=== PATIENT | female | born 2000 | race Caucasian/White ===

== ENCOUNTER 2022-05-11 19:49 | Emergency (ER) | payer OTHER, SELFPAY ==
[2022-05-11 19:56] VITALS: BP 99/71; PULSE 107; RESP 18; TEMP 36.9; O2SAT 96; BMI 25.1
[2022-05-11] MEDS: KETOROLAC 15 MG/ML inj IVP (20:33)
[2022-05-11] MEDS: METHYLPREDNISOLONE SOD SUCC 62.5 MG/ML (125) 125 MG IVP (20:33)
[2022-05-11] MEDS: 0.9 % SODIUM CHLORIDE 1000 ml 1,000 ML IV (20:33)
[2022-05-11 20:42] VITALS: PULSE 94; O2SAT 100
[2022-05-11 20:45] VITALS: PULSE 95; O2SAT 99
[2022-05-11 20:46] LABS: Basophils Absolute Auto 0.04 K/uL (0.00-0.30); Basophils Percent Auto 0.4 % (0.0-3.0); Eosinophils Absolute Auto 0.03 K/uL (0.00-0.50); Eosinophils Percent Auto 0.3 % (0.0-7.0); Hematocrit 43.6 % (33.0-51.0); Hemoglobin* 14.7 gm/dL (12.0-16.0); Immature Granulocytes Abs Auto 0.02 K/uL (0.00-0.30); Immature Granulocytes Pct Auto 0.2 %; Mean Corpuscular HGB Conc 34 gm/dL (32-36); Mean Corpuscular Hemoglobin 32 pg (26-34); Mean Corpuscular Volume 96 fL (80-100); Monocytes Percent Auto 13.6 % (0.0-11.0); Neutrophils Percent Auto 74.5 % (42.0-72.0); Platelet Count* 209 K/uL (140-440); RDW Coefficient of Variation % 11.7 % (11.5-15.5); Red Blood Count 4.54 m/uL (4.00-5.20); White Blood Count* 10.13 K/uL (4.50-11.00)
[2022-05-11 20:47] LABS: Slide Review Reflex No
[2022-05-11 20:49] LABS: Strep A DNA Probe* NOT DETECTED (Not Detectd)
[2022-05-11 20:58] LABS: Chloride* 101 mmol/L (96-114); Sodium* 140 mmol/L (135-149)
[2022-05-11 20:59] LABS: Potassium* 4.2 mmol/L (3.6-5.1)
[2022-05-11 21:00] VITALS: PULSE 91; O2SAT 99
[2022-05-11 21:01] VITALS: BP 110/74; PULSE 90; O2SAT 99
[2022-05-11 21:01] LABS: Creatinine* 0.8 mg/dL (0.5-1.5); Est. Creatinine Clearance* 109.08; Estimated Glomerular Filt Rate 108 ml/min
[2022-05-11 21:02] LABS: PCR FLU A Negative PCR FLU A (Negative); PCR FLU B Negative PCR FLU B (Negative); PCR RSV Negative PCR RSV (Negative)
[2022-05-11 21:02] LABS: Blood Urea Nitrogen* 10 mg/dL (5-24); Calcium* 9.4 mg/dL (8.4-10.6); Carbon Dioxide* 29 mmol/L (20-32); Glucose* 87 mg/dL (60-115)
[2022-05-11 21:04] LABS: SARS PCR* Negative SARS-CoV-2 (Negative)
--- NOTE | 2022-05-11 21:05 | ED_ITS ---
HPI - General Adult General Date Seen: 05/11/22 Chief complaint: Ear/Nose/Throat Problem Stated complaint: swollen throat, trouble swallow, fever Time Seen by Provider: 05/11/22 20:11 Source: patient and family History of Present Illness HPI narrative: Patient is a 21-year-old here with a few day history of swollen throat, trouble swallowing, sore throat, fevers, cough, headache, body aches. She was seen yesterday and had negative strep, COVID and flu test. She is taking ibuprofen and Tylenol alternating. Mom brought her in because she seems to be having more trouble swallowing, they feel like this is how she felt a few years ago when she had mono. She is not having any difficulty breathing. She is drinking liquids okay. No rashes. No vomiting. General health is good. No allergies to medications. Does not smoke. Mom reports that she has had strep every month for the past 3 months. Strep was negative yesterday. Related Data Home Medications Medication Instructions Recorded Confirmed bicalutamide 50 mg tablet mg 05/11/22 Previous Rx's Medication Instructions Recorded tretinoin 0.025 % topical cream 1 applic topical .Bedtime #45 grams 04/20/22 Allergies Allergy/AdvReac Type Severity Reaction Status Date / Time No Known Allergies Allergy Verified 05/11/22 20:02 Review of Systems Status of ROS: Reports: 10 or more systems reviewed and unremarkable except as noted in History and below [facility] Medical History Tonsillitis Family History Family/Other Cancer Mother Depression Father Depression Brother Tumor, Onset Age: 21 Social History Narrative: Non-smoker Smoking Status: Never smoker Do you use any of these nicotine containing products: None Second hand tobacco smoke exposure: No How often do you have a drink containing alcohol: never AUDIT-C Alcohol total score: 0 Non-prescribed substance use: denies use Exam Narrative: Exam Narrative: Vital signs as noted above. In general, an alert, nontoxic young woman. Fatigued appearing. Head: Normocephalic, atraumatic. Eyes: Pupils are equal reactive. Extraocular movements are full. Conjunctivae are normal. ENT: Mucous membranes are moist. Exudate of tonsillitis. No evidence of abscess. Airway patent. Neck: Supple. No stridor. No significant adenopathy. Heart: Mildly tachycardic. No murmur. Lungs: Clear bilaterally. No increased work of breathing, crackles or wheezes. Abdomen: Soft and nontender. No organomegaly. Extremities: Well perfused. No edema. No calf tenderness. Pulses intact. Neurologic: Patient is alert and oriented to person and place. Speech is fluent. Face is symmetric. Moves all extremities equally. Affect: Normal. Skin: Warm and dry. Well perfused. Const: Vital Signs, click to edit/add: Vital Signs - 24 hr 05/11/22 19:56 05/11/22 20:42 05/11/22 20:45 Temperature 98.4 F Pulse Rate 94 95 Pulse Rate [Right] 107 H Respiratory Rate 18 Blood Pressure Blood Pressure [Le ft Upper Arm] 99/71 Pulse Oximetry 96 100 99 Oxygen Delivery Me thod Room Air 05/11/22 21:00 05/11/22 21:01 05/11/22 21:15 Temperature Pulse Rate 91 90 98 Pulse Rate [Right] Respiratory Rate Blood Pressure 110/74 Blood Pressure [Le ft Upper Arm] Pulse Oximetry 99 99 99 Oxygen Delivery Me thod Documenting provider has reviewed patient's vital signs: yes Course Course Hospital Course: While awaiting labs, we did do an IV and gave her normal saline as well as Solu- Medrol and Toradol. She had a negative rapid strep here. CBC showed a white count of 10.1, hemoglobin of 14.7. Metabolic panel was normal. COVID influenza depth negative here as well. She does have tonsillitis evidence on exam, but strep is negative. This is likely viral. Discussed with patient and her mom that it is relatively unlikely to have mono again, and in any case I would not recommend testing this early in the course of the illness as the test is unreliable. Likewise, as it is a viral infection, there is nothing really to do differently. I would recommend from a symptomatic standpoint that she take ibuprofen and Tylenol together 3 times a day rather than alternating. She will likely feel improved over the next several days. My hope is that putting her on a steroid will help a little bit with inflammation in her throat as well. Return at any time for worsening sore throat, inability to swallow secretions, worsening shortness of breath, or other concerns. Follow up with primary care if not improving over the next week. They are comfortable with that plan Vital Signs Vital signs: Initial Vital Signs Temperature 98.4 F 05/11/22 19:56 Temperature Source Temporal Artery Scan 05/11/22 19:56 Pulse Rate 107 H 05/11/22 19:56 Respiratory Rate 18 05/11/22 19:56 Blood Pressure 99/71 05/11/22 19:56 Blood Pressure Mean 80 05/11/22 19:56 Blood Pressure Position Sitting 05/11/22 19:56 Pulse Oximetry 96 05/11/22 19:56 Oxygen Delivery Method 05/11/22 19:56 Vital Signs Temperature 98.4 F 05/11/22 19:56 Pulse Rate 107 H 05/11/22 19:56 Respiratory Rate 18 05/11/22 19:56 Blood Pressure 99/71 05/11/22 19:56 Pulse Oximetry 96 05/11/22 19:56 Oxygen Delivery Method 05/11/22 19:56 Temperature 98.4 F 05/11/22 19:56 Pulse Rate 98 05/11/22 21:15 Respiratory Rate 18 05/11/22 19:56 Blood Pressure 110/74 05/11/22 21:01 Pulse Oximetry 99 05/11/22 21:15 Oxygen Delivery Method 05/11/22 19:56 Medical Decision Making Lab Data Labs: Lab Results 05/11/22 05/11/22 05/11/22 Range/Units 19:56 19:57 20:30 WBC 10.13 (4.50-11.00) K/uL RBC 4.54 (4.00-5.20) m/uL Hgb 14.7 (12.0-16.0) gm/dL Hct 43.6 (33.0-51.0) % MCV 96 (80-100) fL MCH 32 (26-34) pg MCHC 34 (32-36) gm/dL RDW Coeff of Maxine 11.7 (11.5-15.5) % Plt Count 209 (140-440) K/uL Neut % (Auto) 74.5 H (42.0-72.0) % Lymph % (Auto) 11.0 L (20-44) % [place] % (Auto) 13.6 H (0.0-11.0) % Eos % (Auto) 0.3 (0.0-7.0) % Baso % (Auto) 0.4 (0.0-3.0) % Neut # (Auto) 7.50 H (1.7-7.0) K/uL Lymph # (Auto) 1.10 (0.90-2.90) K/uL [place] # (Auto) 1.40 H (0.00-0.90) K/UL Eos # (Auto) 0.03 (0.00-0.50) K/uL Baso # (Auto) 0.04 (0.00-0.30) K/uL Sodium (135-149) mmol/L Potassium (3.6-5.1) mmol/L Chloride (96-114) mmol/L Carbon Dioxide (20-32) mmol/L BUN (5-24) mg/dL Creatinine (0.5-1.5) mg/dL Estimated Creat Clear Estimated GFR ml/min Glucose (60-115) mg/dL Calcium (8.4-10.6) mg/dL SARS-CoV-2 (PCR) Negative SARS-CoV-2 (Negative) Influenza Type A (PCR) Negative PCR FLU A (Negative) Influenza Type B (PCR) Negative PCR FLU B (Negative) RSV (PCR) Negative PCR RSV (Negative) Group A Strep DNA NOT DETECTED (Not Detectd) 05/11/22 Range/Units 20:30 WBC (4.50-11.00) K/uL RBC (4.00-5.20) m/uL Hgb (12.0-16.0) gm/dL Hct (33.0-51.0) % MCV (80-100) fL MCH (26-34) pg MCHC (32-36) gm/dL RDW Coeff of Maxine (11.5-15.5) % Plt Count (140-440) K/uL Neut % (Auto) (42.0-72.0) % Lymph % (Auto) (20-44) % [place] % (Auto) (0.0-11.0) % Eos % (Auto) (0.0-7.0) % Baso % (Auto) (0.0-3.0) % Neut # (Auto) (1.7-7.0) K/uL Lymph # (Auto) (0.90-2.90) K/uL [place] # (Auto) (0.00-0.90) K/UL Eos # (Auto) (0.00-0.50) K/uL Baso # (Auto) (0.00-0.30) K/uL Sodium 140 (135-149) mmol/L Potassium 4.2 (3.6-5.1) mmol/L Chloride 101 (96-114) mmol/L Carbon Dioxide 29 (20-32) mmol/L BUN 10 (5-24) mg/dL Creatinine 0.8 (0.5-1.5) mg/dL Estimated Creat Clear 109.08 Estimated GFR 108 ml/min Glucose 87 (60-115) mg/dL Calcium 9.4 (8.4-10.6) mg/dL SARS-CoV-2 (PCR) (Negative) Influenza Type A (PCR) (Negative) Influenza Type B (PCR) (Negative) RSV (PCR) (Negative) Group A Strep DNA (Not Detectd) Discharge Plan Discharge Clinical Impression: Tonsillitis Patient Disposition: Home, Self-Care Condition: Improved Instructions: Tonsillitis (ED) Additional Instructions: I would recommend taking ibuprofen 400 mg and Tylenol 1000 mg together 3 times a day rather than alternating. Prednisone as prescribed. Return for worsening sore throat or other worsening concerns. Otherwise, anticipate the you will improve gradually over the next 3-5 days. Prescriptions: No Action tretinoin 0.025 % cream 1 applic topical .Bedtime Qty: 45 2RF bicalutamide 50 mg tablet Label Comments: TAKE 1 TABLET BY MOUTH TWICE A WEEK. Follow Up/Referrals: Margareth Headley PA-C [Primary Care Provider] - Stand Alone Forms: [employer] Info Instructions
[2022-05-11 21:15] VITALS: PULSE 98; O2SAT 99
[2022-05-11 21:24] LABS: C Reactive Protein* 15.7 mg/dL (0.5-1.0)
== END 2022-05-11 21:21 | disposition home or self-care (01) ==
PROVIDERS: Emergency Provider Emergency Medicine; PCP Physician Assistant Medical
DX: J03.90 Acute tonsillitis, unspecified (principal)
CPT/HCPCS: 36415; 80048; 85025; 86140; 87502; 87634; 87635; 87651; 96361; 96374; 96375; 99284; J1885; J2930; J7030

== ENCOUNTER 2022-06-25 09:23 | Day surgery (SDC) | payer OTHER, SELFPAY ==
[2022-06-25] VITALS (14 sets, daily range): BP systolic 110–129; BP diastolic 61–86; PULSE 45–76; RESP 12–16; TEMP 36.6; O2SAT 96–99; BMI 25.2
--- NOTE | 2022-06-25 07:59 | W.ANESCHARGE ---
Anesthesia Charges Start Date/Time Anesthesia Start Date: 06/25/22 Anesthesia Start Time: 10:46 Stop Date/Time Anesthesia Stop Date: 06/25/22 Anesthesia Stop Time: 11:26
[2022-06-25] MEDS: LACTATED RINGERS 1000 ML 1,000 ML 100 ML IV (08:20)
[2022-06-25] MEDS: SODIUM CHLORIDE 0.9 % (FLUSH) 10 ML SYRINGE IVF (09:51)
[2022-06-25 10:05] LABS: HCG Qualitative* Negative (Negative)
--- NOTE | 2022-06-25 11:24 | W.ANESCHARGE ---
Anesthesia Charges Start Date/Time Anesthesia Start Date: 06/25/22 Anesthesia Start Time: 10:46 Stop Date/Time Anesthesia Stop Date: 06/25/22 Anesthesia Stop Time: 11:26
[2022-06-25] MEDS: ACETAMINOPHEN 160 MG/5 ML CUP 320 MG PO (12:07)
[2022-06-25] MEDS: IBUPROFEN 100 MG/5 ML SUSP 200 MG PO (12:09)
[2022-06-25] MEDS: OXYCODONE 1 MG/ML ORAL SOLN 5 MG PO (12:09)
--- NOTE | 2022-06-25 12:48 | W.PM.ENTPROC ---
Procedure Note Date of procedure: 06/25/22 Procedure: Preop diagnosis chronic tonsillitis postoperative diagnosis adenotonsillar hypertrophy chronic tonsillitis Procedure adenotonsillectomy Under general trach anesthesia patient was prepped and draped usual fashion. The McIvor mouth gag was inserted and the tongue retracted. No submucous cleft was noted. The right and left tonsils removed with a combination of needlepoint and Coblation. The nasopharynx was visualized indirectly with a laryngeal mirror the adenoid pad was found to be enlarged was removed with suction cautery. Patient on procedure well was taken recovery in satisfactory condition blood loss less than 10 mL. No complications Surgeon: Owen Altman MD
== END 2022-06-25 13:39 | disposition home or self-care (01) ==
PROVIDERS: Anesthesiology; PCP Physician Assistant Medical; Visit Provider Otolaryngology
PROC: (CPT 42821; principal; 2022-06-25 10:45)
DX: J35.01 Chronic tonsillitis (principal); J35.3 Hypertrophy of tonsils with hypertrophy of adenoids
CPT/HCPCS: 42821; 170; 84703; 88304; A9270; J0330; J1100; J2405; J2704; J3010; J7120

== ENCOUNTER 2022-06-30 14:13 | Emergency (ER) | payer OTHER, SELFPAY ==
[2022-06-30 14:18] VITALS: BP 117/70; PULSE 95; RESP 20; TEMP 36.8; O2SAT 94; BMI 25.8
--- NOTE | 2022-06-30 14:30 | ED_ITS ---
HPI - General Adult General Chief complaint: Dizziness/Vertigo Stated complaint: dehydrated after tonsilectomy Time Seen by Provider: 06/30/22 14:15 History of Present Illness HPI narrative: Patient is a pleasant 21 year white female had a T&A surgery with Dr. Zaragoza in about 5 days ago. She has done fairly well. Although she had some nausea. She has had some constipation some dizziness. She has not taken well p.o.. She is on OxyContin Advil and Tylenol, she also takes cephalexin and Zofran as needed. She was sent in by Dr. Cristin Zaragoza in to get some IV fluid. Patient has reported some constipation as mention some dizziness. Does not feel she got enough fluid intake. Her pain is well controlled now she took some took her OxyContin at 1:00 p.m. Related Data Home Medications Medication Instructions Recorded Confirmed bicalutamide 50 mg tablet mg PO .2 x week 06/14/22 06/14/22 Previous Rx's Medication Instructions Recorded tretinoin 0.025 % topical cream 1 applic topical .Bedtime #45 grams 04/20/22 cephalexin 500 mg capsule 500 mg PO TID #18 caps 06/25/22 ondansetron 4 mg disintegrating 4 mg PO Q8H #15 tabs 06/30/22 tablet oxycodone 5 mg/5 mL oral solution 5 mg (5 mL) PO Q4-6H PRN pain #200 06/30/22 mL Allergies Allergy/AdvReac Type Severity Reaction Status Date / Time No Known Allergies Allergy Verified 06/30/22 14:18 Review of Systems Status of ROS: Reports: 6 or more systems reviewed and unremarkable except as noted in History and below PFSH PFS Medical History History of depression Tonsillitis Surgical History No pertinent past surgical history Family History Family/Other Cancer Mother Depression Father Depression Brother Tumor, Onset Age: 21 Social History Narrative: Non-smoker Smoking Status: Current every day smoker Do you use any of these nicotine containing products: Vaping Products Second hand tobacco smoke exposure: No How often do you have a drink containing alcohol: never AUDIT-C Alcohol total score: 0 Non-prescribed substance use: denies use Caffeine: Yes Are you using contraception or practicing any form of control: No Exam Narrative: Exam Narrative: Objective vital signs unremarkable Alert orient x3 Talks in even unlabored sentences HEENT shows tonsillar beds well cauterize no bleeding. Const: Vital Signs, click to edit/add: Vital Signs - 24 hr 06/30/22 14:18 Temperature 98.3 F Pulse Rate [Pulse Oximeter] 95 Respiratory Rate 20 Blood Pressure [Ri ght Upper Arm] 117/70 Pulse Oximetry 94 Oxygen Delivery Me thod Room Air Course Vital Signs Vital signs: Initial Vital Signs Temperature 98.3 F 06/30/22 14:18 Temperature Source Temporal Artery Scan 06/30/22 14:18 Pulse Rate 95 06/30/22 14:18 Pulse Rhythm 06/30/22 14:18 Respiratory Rate 20 06/30/22 14:18 Blood Pressure 117/70 06/30/22 14:18 Blood Pressure Mean 85 06/30/22 14:18 Blood Pressure Position Supine 06/30/22 14:18 Pulse Oximetry 94 06/30/22 14:18 Oxygen Delivery Method 06/30/22 14:18 Vital Signs Temperature 98.3 F 06/30/22 14:18 Pulse Rate 95 06/30/22 14:18 Respiratory Rate 20 06/30/22 14:18 Blood Pressure 117/70 06/30/22 14:18 Pulse Oximetry 94 06/30/22 14:18 Oxygen Delivery Method 06/30/22 14:18 Temperature 98.3 F 06/30/22 14:18 Pulse Rate 95 06/30/22 14:18 Respiratory Rate 20 06/30/22 14:18 Blood Pressure 117/70 06/30/22 14:18 Pulse Oximetry 94 06/30/22 14:18 Oxygen Delivery Method 06/30/22 14:18 Medical Decision Making MDM Narrative Medical decision making narrative: Patient has had some symptoms of dehydration, will give a L of IV saline. Would recommend that she wean off the OxyContin as soon as possible. Would also recommend starting some Metamucil or MiraLax would be appropriate. Remain hydrated, and update Dr. Woodward and as needed, return to ED as needed. Discharge Plan Discharge Clinical Impression: Acute dehydration, History of tonsillectomy Patient Disposition: Home w/ Parent or Adult Condition: Improved Additional Instructions: Rest, fluids, may try some MiraLax orally for constipation, wean off the OxyContin when can, continue medications as prescribed. Return as needed Activity Level: Light activity Discharge Diet: Regular Prescriptions: No Action tretinoin 0.025 % cream 1 applic topical .Bedtime Qty: 45 2RF bicalutamide 50 mg tablet PO .2 x week Label Comments: TAKE 1 TABLET BY MOUTH TWICE A WEEK. cephalexin 500 mg capsule 500 mg PO TID Qty: 18 0RF ondansetron 4 mg tablet,disintegrating 4 mg PO Q8H Qty: 15 1RF oxycodone 5 mg/5 mL solution 5 mg PO Q4-6H PRN (Reason: pain) Qty: 200 0RF Follow Up/Referrals: Margareth Headley PA-C [Primary Care Provider] - Stand Alone Forms: [employer] Info Instructions
[2022-06-30] MEDS: 0.9 % SODIUM CHLORIDE 1000 ml 1,000 ML 6000 ML IV (14:42)
== END 2022-06-30 15:44 | disposition home or self-care (01) ==
LOC: ED 14:41
PROVIDERS: Emergency Provider Family Medicine; PCP Physician Assistant Medical
DX: E86.0 Dehydration (principal); Z98.890 Other specified postprocedural states
CPT/HCPCS: 96360; 99283; J7030

== ENCOUNTER 2022-08-17 09:49 | Outpatient (CLI) | payer OTHER, SELFPAY | END 2022-08-17 09:50 | disposition home or self-care (01) | PROVIDERS: PCP Physician Assistant Medical; Visit Provider Dermatology | DX: L70.0 Acne vulgaris (principal) | CPT/HCPCS: 80076 ==

== ENCOUNTER 2022-11-03 09:21 | Outpatient (CLI) | payer OTHER, SELFPAY ==
[2022-11-03 15:45] LABS: Chlamydia DNA Amplified* NOT DETECTED (No Detected); GC DNA Amplified* NOT DETECTED (No Detected)
== END 2022-11-03 09:22 | disposition home or self-care (01) ==
PROVIDERS: PCP Physician Assistant Medical; Visit Provider Obstetrics & Gynecology
DX: Z11.3 Encounter for screening for infections with a predominantly sexual mode of transmission (principal)
CPT/HCPCS: 87491; 87591

== ENCOUNTER 2023-03-31 10:40 | Outpatient (CLI) | payer OTHER, SELFPAY ==
[2023-03-31 19:23] LABS: GC DNA Amplified* NOT DETECTED (No Detected)
[2023-03-31 19:27] LABS: Chlamydia DNA Amplified* DETECTED (No Detected)
== END 2023-03-31 10:41 | disposition home or self-care (01) ==
PROVIDERS: PCP Physician Assistant Medical; Visit Provider Obstetrics & Gynecology
DX: Z11.3 Encounter for screening for infections with a predominantly sexual mode of transmission (principal); Z12.4 Encounter for screening for malignant neoplasm of cervix
CPT/HCPCS: 86592; 86703; 86706; 86803; 87340; 87491; 87591

== ENCOUNTER 2024-11-02 09:27 | Outpatient (CLI) | payer OTHER, SELFPAY ==
[2024-11-02 11:32] LABS: Chlamydia DNA Amplified* NOT DETECTED (No Detected); GC DNA Amplified* NOT DETECTED (No Detected)
== END 2024-11-02 09:28 | disposition home or self-care (01) ==
LOC: NFLDREF 09:28
PROVIDERS: PCP Physician Assistant Medical; Visit Provider Obstetrics & Gynecology
DX: Z11.3 Encounter for screening for infections with a predominantly sexual mode of transmission (principal)
CPT/HCPCS: 87491; 87591

== ENCOUNTER 2025-01-11 13:42 | Outpatient (CLI) | payer OTHER, SELFPAY ==
[2025-01-11 18:16] LABS: Bacterial Vaginosis* Negative (Negative); Candida glab/krus NOT DETECTED (No Detected)
== END 2025-01-11 13:43 | disposition home or self-care (01) ==
LOC: NFLDREF 13:42
PROVIDERS: PCP Physician Assistant Medical; Visit Provider Registered Nurse
DX: N89.8 Other specified noninflammatory disorders of vagina (principal)
CPT/HCPCS: 81513; 87481; 87661